=== PATIENT | female | born 1995 | race Caucasian/White ===

== ENCOUNTER 2016-05-24 11:02 | Emergency (ER) | payer MEDICAID ==
[~2016-05-24] VITALS: Wt 58.0 kg
[2016-05-24 13:16] LABS: ADD SCAN DIFF NO
[2016-05-24 13:19] LABS: BASOPHILS % 0.2 % (0.0-2.0); EOSINOPHILS # 0.2 10^3/ul (0.0-0.5); EOSINOPHILS % 1.2 % (0.0-7.0); HEMATOCRIT 40.8 % (37.0-47.0); HEMOGLOBIN 13.5 g/dl (12.0-16.0); LYMPHOCYTES # 3.8 10^3/ul (0.8-2.9); LYMPHOCYTES % 29.3 % (15.0-51.0); MEAN CORPUSCULAR HEMOGLOBIN 31.2 pg (29.0-33.0); MEAN CORPUSCULAR HGB CONC 33.1 g/dl (32.0-37.0); MEAN CORPUSCULAR VOLUME 94.2 fl (82.0-101.0); MEAN PLATELET VOLUME 12.6 fl (7.4-10.4); MONOCYTE # 0.8 10^3/ul (0.3-0.9); MONOCYTES % 6.2 % (0.0-11.0); NEUTROPHIL # 8.1 10^3/ul (1.6-7.5); NEUTROPHILS % 62.8 % (39.0-77.0); PLATELET COUNT 205 10^3/UL (140-415); RED BLOOD COUNT 4.33 10^6/ul (4.20-5.40); RED CELL DISTRIBUTION WIDTH 11.3 % (11.5-14.5)
[2016-05-24 13:35] LABS: ADD UMIC YES; URINE BILIRUBIN (Dip) NEGATIVE (NEGATIVE); URINE BLOOD (Dip) 3+ (NEGATIVE); URINE COLOR LT. YELLOW (YELLOW); URINE GLUCOSE (Dip) NEGATIVE (NEGATIVE); URINE KETONES (Dip) TRACE (NEGATIVE); URINE LEUKOCYTE ESTERASE (Dip) NEGATIVE (NEGATIVE); URINE NITRITE (Dip) NEGATIVE (NEGATIVE); URINE TOTAL PROTEIN (Dip) NEGATIVE (NEGATIVE); URINE UROBILINOGEN (Dip) 0.2 E.U./dL (0.1-1.0)
[2016-05-24 13:55] LABS: BACTERIA,URINE FEW; SQUAMOUS EPITHELIAL CELL,UR FEW
--- NOTE | 2016-05-24 14:12 | RADRPT ---
PROCEDURE: US Pelvis/OB. CLINICAL INDICATION: vaginal bleeding TECHNIQUE: Multiple sonographic images of the pelvis were obtained utilizing a transabdominal and endovaginal technique. The images were reviewed on a PACS workstation. COMPARISON: None. FINDINGS: There is a small cystic structure within the endometrium measuring 0.8 cm which would correspond to a calculated gestational age of 5 weeks and 4 days. No pole is yet visualized. There is a yol k sac seen. The right ovary measures 2.5 x 2.0 x 2.3 cm. The left ovary measures 3.2 x 2.4 x 2.54 cm. There is a hemorrhagic cyst in the left ovary, measurin g 1.7 cm, consistent with a corpus luteum cyst. No significant free fluid is present within the pelvis. RPTAT: AA IMPRESSION: Probable early intrauterine at 5 weeks and 4 days. Close followup ultrasound and hCG is recommended. Left ovarian corpus luteum cyst. .Jordan Morris MD, MD Date Time Electronically viewed and signed by .Jordan Morris MD, on 05/24/2016 14:11 .S/
[2016-05-24 15:00] VITALS: BP 128/74; PULSE 77; RESP 18; TEMP 98.2
--- NOTE | 2016-05-24 15:02 | ERD ---
ER Documentation Chief Complaint Date/Time DATE: 05/24/16 TIME: 14:59 Chief Complaint vaginal bleeding 8 wks . mild cramping. no vomiting noted. HPI This is a 20-year-old female who presents to the ER with vaginal bleeding. Patient states she is currently about 8 weeks . A0. She denies any urinary frequency or dysuria. She denies any pelvic pain. She denies any vaginal discharge. ROS 12 point review of systems was done, all negative except per HPI. Allergies Allergies: Coded Allergies: No Known Allergy (Unverified , 05/24/16) PMhx/Soc Medical and Surgical Hx: pt denies Medical Hx History of Surgery: Yes (caesarian section) Anesthesia Reaction: No Hx Neurological Disorder: No Hx Respiratory Disorders: No Hx Cardiac Disorders: No Hx Psychiatric Problems: No Hx Miscellaneous Medical Probl: No Hx Alcohol Use: No Hx Substance Use: No Hx Tobacco Use: No Smoking Status: Never smoker Physical Exam Vitals Vital Signs Date Time Temp Pulse Resp B/P Pulse Ox O2 Delivery O2 Flow Rate FiO2 05/24/16 11:04 97.3 72 21 129/73 98 Physical Exam GENERAL: The patient is well developed and appropriate for usual state of health , in no apparent distress. HEENT: Atraumatic. Conjunctivae are pink. Pupils equal, round, and reactive to light. Extraocular muscles are grossly intact. Bilateral tympanic membranes are clear with no evidence of erythema, effusion or dulling of the light reflex. The oropharynx is clear with no erythema or exudates. NECK: C-spine is soft and supple. There is no cervical lymphadenopathy. CHEST: Clear to auscultation bilaterally. There are no rales, wheezes or rhonchi. HEART: Regular rate and rhythm. No murmurs, clicks, rubs or gallops. ABDOMEN: Soft, nontender and nondistended. Good bowel sounds. No rebound or guarding. No gross peritonitis. No gross organomegaly or masses. No Ferrell sign or McBurney point tenderness. BACK: No midline or flank tenderness. EXTREMITIES: Equal pulses bilaterally. There is no peripheral clubbing, cyanosis or edema. No focal swelling or erythema. Full range of motion. Grossly neurovascularly intact. NEURO: Alert and oriented. Cranial nerves II through XII are intact. Motor strength in all 4 extremities with 5/5 strength. Sensation grossly intact. Normal speech and gait. SKIN: There is no apparent rash or petechia. The skin is warm and dry. Result Diagram: 05/24/16 1310 Results 24 hrs Laboratory Tests Test 05/24/16 12:55 05/24/16 13:10 Urine Bacteria FEW Urine Bilirubin NEGATIVE Urine Calcium Oxalate Crystals FEW Urine Clarity CLEAR Urine Color LT. YELLOW Urine Glucose NEGATIVE% Urine Hemoglobin 3+ Urine Ketones TRACE Urine Leukocyte Esterase NEGATIVE Urine Microscopic RBC 2-5/HPF Urine Microscopic WBC NONE SEEN/HPF Urine Nitrite NEGATIVE Urine Specific [place] >=1.030 Urine Squamous Epithelial Cells FEW Urine Total Protein NEGATIVE Urine Urobilinogen 0.2 E.U./dL Urine pH 5.5 Basophils # 0.010^3/ul Basophils % 0.2% Beta HCG, Quantitative 1765.7mIU/ml Eosinophils # 0.210^3/ul Eosinophils % 1.2% Hematocrit 40.8% Hemoglobin 13.5g/dl Lymphocytes # 3.810^3/ul Lymphocytes % 29.3% Mean Corpuscular Hemoglobin 31.2pg Mean Corpuscular Hemoglobin Concent 33.1g/dl Mean Corpuscular Volume 94.2fl Mean Platelet Volume 12.6fl Monocytes # 0.810^3/ul Monocytes % 6.2% Neutrophils # 8.110^3/ul Neutrophils % 62.8% Nucleated Red Blood Cells # 0.010^3/ul Nucleated Red Blood Cells % 0.0/100WBC Platelet Count 17117^3/UL Red Blood Count 4.3310^6/ul Red Cell Distribution Width 11.3% White Blood Count 13.010^3/ul [id number] [place] [address] Radiology Main Line: [phone] DIAGNOSTIC IMAGING REPORT Patient: KARSON SMITH : 1995 Age: 20 Sex: F MR #: [id number] DOS: 05/24/16 1239 Ordering MD: IKE DAWSON PA-C Location: [facility] Room/Bed: PROCEDURE: US Pelvis/OB. CLINICAL INDICATION: vaginal bleeding TECHNIQUE: Multiple sonographic images of the pelvis were obtained utilizing a transabdominal and endovaginal technique. The images were reviewed on a PACS workstation. COMPARISON: None. FINDINGS: There is a small cystic structure within the endometrium measuring 0.8 cm which would correspond to a calculated gestational age of 5 weeks and 4 days. No pole is yet visualized. There is a yolk sac seen. The right ovary measures 2.5 x 2.0 x 2.3 cm. The left ovary measures 3.2 x 2.4 x 2.54 cm. There is a hemorrhagic cyst in the left ovary, measuring 1.7 cm, consistent with a corpus luteum cyst. No significant free fluid is present within the pelvis. RPTAT: AA IMPRESSION: Probable early intrauterine at 5 weeks and 4 days. Close followup ultrasound and hCG is recommended. Left ovarian corpus luteum cyst. .Jordan Morris MD, MD Date Time Electronically viewed and signed by .Jordan Morris MD, MD on 05/24/2016 14: 11 .S/ CC: IKE DAWSON Procedures/MDM Differential diagnosis: Threatened , missed , incomplete , ectopic , molar , UTI, pyelonephritis. At this time patient is only about 5 weeks . Her ultrasound was inconclusive. Patients quantitative HCG is above 1500, therefore NEEDLE MAKER telephone betting clerk was consulted on this case. Suspicion for ectopic is low. Patient needs to f/u in 48 hours. Patient needs to return to ER sooner if symptoms worsen. Plan was discussed with the patient, she understands and agrees with plan. Departure Diagnosis: Primary Impression: Threatened Condition: Stable Patient Instructions: Possible Miscarriage (Threatened ) Additional Instructions: Regrese a estas instalaciones dentro de DOS GALE para un examen de seguimiento.Regrese antes si lockett condicin se empeora. IKE DAWSON May 24, 2016 15:02
== END 2016-05-24 15:00 | disposition home or self-care (01) ==
LOC: FTE 11:02
DX: O20.0 Threatened abortion (principal); Z3A.01 Less than 8 weeks gestation of pregnancy
CPT/HCPCS: 76801; 76817; 81001; 84702; 85025; 86900; 86901; Z7502; 81003

== ENCOUNTER 2016-05-26 11:00 | Emergency (ER) | payer MEDICAID ==
[~2016-05-26] VITALS: Wt 45.0 kg
[2016-05-26 15:51] LABS: ADD SCAN DIFF NO
[2016-05-26 15:55] LABS: BASOPHILS % 0.3 % (0.0-2.0); EOSINOPHILS # 0.2 10^3/ul (0.0-0.5); EOSINOPHILS % 1.6 % (0.0-7.0); HEMATOCRIT 42.6 % (37.0-47.0); HEMOGLOBIN 13.9 g/dl (12.0-16.0); LYMPHOCYTES # 3.2 10^3/ul (0.8-2.9); LYMPHOCYTES % 29.6 % (15.0-51.0); MEAN CORPUSCULAR HEMOGLOBIN 30.8 pg (29.0-33.0); MEAN CORPUSCULAR HGB CONC 32.6 g/dl (32.0-37.0); MEAN CORPUSCULAR VOLUME 94.5 fl (82.0-101.0); MEAN PLATELET VOLUME 12.7 fl (7.4-10.4); MONOCYTE # 0.7 10^3/ul (0.3-0.9); MONOCYTES % 6.6 % (0.0-11.0); NEUTROPHIL # 6.6 10^3/ul (1.6-7.5); NEUTROPHILS % 61.6 % (39.0-77.0); PLATELET COUNT 188 10^3/UL (140-415); RED BLOOD COUNT 4.51 10^6/ul (4.20-5.40); RED CELL DISTRIBUTION WIDTH 11.6 % (11.5-14.5); WHITE BLOOD COUNT 10.7 10^3/ul (4.8-10.8)
--- NOTE | 2016-05-26 16:29 | RADRPT ---
PROCEDURE: US Pelvis. CLINICAL INDICATION: vaginal bleeding TECHNIQUE: Multiple sonographic images of the pelvis were obtained utilizing a transabdominal and endovaginal technique. The images were reviewed on a PACS workstation. COMPARISON: 05/24/2016 FINDINGS: The uterus is normal in size and demonstrates a normal appearance of the myometrium. There is a small amount of fluid within the endometrium. The previously seen gestational sac is no longer visualized. The endometrium measures 4 mm in thickness. No intrauterine gestation is noted. The ovaries are normal in size and echogenicity. Normal Doppler flow is identified in both ovaries. The right ovary measures 3.1 x 1.7 x 2.4 cm. The left ovary measures 3.8 x 2.5 x 2.5 cm. No free fluid is present within the pelvis.. RPTAT: AA IMPRESSION: Previously seen gestational sac is no longer visualized. The findings are likely secondary to an in progress. Follow-up ultrasound and HCG levels is recommended. .Jordan Morris MD, MD Date Time Electronically viewed and signed by .Jordan Morris MD, on 05/26/2016 16:28 .S/
[2016-05-26 17:27] VITALS: BP 128/68; PULSE 77; RESP 18
--- NOTE | 2016-05-26 17:56 | ERD ---
ER Documentation Chief Complaint Date/Time DATE: 05/26/16 TIME: 17:53 Chief Complaint VAG BLEED ABOUT 6 WKS PREG, SENT BY CLINIC FOR EVAL. NOT FEELING BETTER HPI 20-year-old female with no significant past medical history is a G 2 P0 presents the ED complaining of vaginal bleeding that started 4 days ago. States that the bleeding has worsened since 2 days ago. Reports that she has had to change 2 pads per day. States that it is bright red blood. Reports that her last menses was March 21, 2016. Denies any vaginal discharge, dysuria , urgency, frequency, flank pain, pelvic pain, abdominal pain, chest pain, shortness of breath. States that she followed up with her COMBINATION TECHNICIAN at a clinic called the [facility] for family health education but does not have a specific OB/ REVENUE INVESTIGATOR. ROS All systems reviewed and are negative except as per history of present illness. Allergies Allergies: Coded Allergies: No Known Allergy (Unverified , 05/24/16) PMhx/Soc History of Surgery: Yes (caesarian section) Anesthesia Reaction: No Hx Neurological Disorder: No Hx Respiratory Disorders: No Hx Cardiac Disorders: No Hx Psychiatric Problems: No Hx Miscellaneous Medical Probl: No Hx Alcohol Use: No Hx Substance Use: No Hx Tobacco Use: No Physical Exam Vitals Vital Signs Date Time Temp Pulse Resp B/P Pulse Ox O2 Delivery O2 Flow Rate FiO2 05/26/16 17:27 77 18 128/68 99 Room Air 05/26/16 11:13 98.1 94 20 130/71 98 Physical Exam Const: Yow-[id number], well-nourished. In no acute distress. Head: Atraumatic, normocephalic Eyes: Normal Conjunctiva without injection. No purulent discharge. ENT: Normal external ear, nose. Moist oropharynx without tonsillar exudates. Non -erythematous pharynx. Uvula midline. No drooling. No trismus. Neck: No cervical midline tenderness. Full range of motion. No meningismus. No cervical lymphadenopathy. No JVD. Resp: Clear to auscultation bilaterally. No wheezing, rhonchi, rales, or crackles. No accessory muscle use. No retractions. Cardio: Regular rate and rhythm. No murmurs, rubs or gallops. Abd: Soft, nontender, non distended. Normal bowel sounds. No palpable masses. No rebound tenderness. No guarding. Negative McBurney's point. Negative psoas sign. Negative obturator sign. Skin: No petechiae or rashes Back: No midline tenderness. No CVA tenderness. Ext: No cyanosis, or edema. Neur: Awake and alert. Normal gait. Normal coordination. Psych: Normal Mood and Affect Result Diagram: 05/26/16 1525 Results 24 hrs Laboratory Tests Test 05/26/16 15:25 Basophils # 0.010^3/ul Basophils % 0.3% Beta HCG, Quantitative 562.9mIU/ml Eosinophils # 0.210^3/ul Eosinophils % 1.6% Hematocrit 42.6% Hemoglobin 13.9g/dl Lymphocytes # 3.210^3/ul Lymphocytes % 29.6% Mean Corpuscular Hemoglobin 30.8pg Mean Corpuscular Hemoglobin Concent 32.6g/dl Mean Corpuscular Volume 94.5fl Mean Platelet Volume 12.7fl Monocytes # 0.710^3/ul Monocytes % 6.6% Neutrophils # 6.610^3/ul Neutrophils % 61.6% Nucleated Red Blood Cells # 0.010^3/ul Nucleated Red Blood Cells % 0.0/100WBC Platelet Count 74273^3/UL Red Blood Count 4.5110^6/ul Red Cell Distribution Width 11.6% White Blood Count 10.710^3/ul Procedures/MDM This is a 20-year-old female with no significant past mental history is a presents to the ED complaining of vaginal bleeding. Patient is afebrile and nontoxic-appearing. An ultrasound, beta-hCG, CBC, type and RH, UA was ordered to evaluate patient. CBC: No evidence of severe infection or anemia Urine: No elevation in nitrites, leukocyte esterase, hematuria. No evidence of UTI Rh: O positive. No indication for Rhogam at this time. beta Hcg: Patient's beta hCG is 562.9 and has down trended from 1765.7 PROCEDURE: US Pelvis. CLINICAL INDICATION: vaginal bleeding TECHNIQUE: Multiple sonographic images of the pelvis were obtained utilizing a transabdominal and endovaginal technique. The images were reviewed on a PACS workstation. COMPARISON: 05/24/2016 FINDINGS: The uterus is normal in size and demonstrates a normal appearance of the myometrium. There is a small amount of fluid within the endometrium. The previously seen gestational sac is no longer visualized. The endometrium measures 4 mm in thickness. No intrauterine gestation is noted. The ovaries are normal in size and echogenicity. Normal Doppler flow is identified in both ovaries. The right ovary measures 3.1 x 1.7 x 2.4 cm. The left ovary measures 3.8 x 2.5 x 2.5 cm. No free fluid is present within the pelvis.. RPTAT: AA IMPRESSION: Previously seen gestational sac is no longer visualized. The findings are likely secondary to an in progress. Follow-up ultrasound and HCG levels is recommended. Patient's bleeding symptoms have stabilized while in the department. Patient likely has a spontaneous in progress. Low suspicion for symptomatic anemia, ectopic , sepsis, PID, appendicitis, ovarian torsion, tubo- ovarian abscess, surgical abdomen, or other emergent conditions. Patient was educated that there is a risk for threatened . Patient to follow up with COMBINATION TECHNICIAN in 2 days for further evaluation and treatment to further downtrend her beta hCG to 0. Patient is to return sooner to the ED for any worsening symptoms. Patient's questions were answered. Patient understood and agreed with discharge plan. Departure Diagnosis: Primary Impression: Vaginal bleeding in patient at less than 20 weeks ges... Condition: Stable Patient Instructions: Miscarriage Referrals: [facility] YOU HAVE RECEIVED A MEDICAL SCREENING EXAM AND THE RESULTS INDICATE THAT YOU DO NOT HAVE A CONDITION THAT REQUIRES URGENT TREATMENT IN THE EMERGENCY DEPARTMENT. FURTHER EVALUATION AND TREATMENT OF YOUR CONDITION CAN WAIT UNTIL YOU ARE SEEN IN YOUR DOCTORS OFFICE WITHIN THE NEXT 1-2 DAYS. IT IS YOUR RESPONSIBILITY TO MAKE AN APPOINTMENT FOR FOLOW-UP CARE. IF YOU HAVE A PRIMARY DOCTOR --you should call your primary doctor and schedule an appointment IF YOU DO NOT HAVE A PRIMARY DOCTOR YOU CAN CALL OUR PHYSICIAN REFERRAL HOTLINE AT IF YOU CAN NOT AFFORD TO SEE A PHYSICIAN YOU CAN CHOSE FROM THE FOLLOWING [facility] [address] [facility] [facility] [address] [facility] [facility] [address] [facility] [address] [facility] [address] [facility]. [facility] [address] [facility]. [facility] YOU HAVE RECEIVED A MEDICAL SCREENING EXAM AND THE RESULTS INDICATE THAT YOU DO NOT HAVE A CONDITION THAT REQUIRES URGENT TREATMENT IN THE EMERGENCY DEPARTMENT. FURTHER EVALUATION AND TREATMENT OF YOUR CONDITION CAN WAIT UNTIL YOU ARE SEEN IN YOUR DOCTORS OFFICE WITHIN THE NEXT 1-2 DAYS. IT IS YOUR RESPONSIBILITY TO MAKE AN APPOINTMENT FOR FOLOW-UP CARE. IF YOU HAVE A PRIMARY DOCTOR --you should call your primary doctor and schedule and appointment IF YOU DO NOT HAVE A PRIMARY DOCTOR YOU CAN CALL OUR PHYSICIAN REFERRAL HOTLINE AT . IF YOU CAN NOT AFFORD TO SEE A PHYSICIAN YOU CAN CHOSE FROM THE FOLLOWING [facility] INSTITUTIONS: [facility] [address] [place] [address] [facility] [address] [place], [place] [id number] [place] [address] [address] [place] [address] [facility]ENT [facility]/SPECIALTIES Additional Instructions: seguimiento con tu obstetra en 2 dewitt para la evaluacin adicional y repetir beta Hcg Regrese a estas instalaciones si no se mejora raad esperbamos o raad le davidamos. BRAD MARTINEZ PA-C May 26, 2016 17:55
== END 2016-05-26 17:29 | disposition home or self-care (01) ==
LOC: FTE 11:00
DX: O20.9 Hemorrhage in early pregnancy, unspecified (principal); Z3A.01 Less than 8 weeks gestation of pregnancy
CPT/HCPCS: 36415; 76801; 76817; 84702; 85025; Z7502

== ENCOUNTER 2017-08-12 12:28 | Inpatient (IN) | END 2017-08-14 18:30 | disposition home or self-care (01) | DRG 775 ==